=== PATIENT | male | born 1990 | race Caucasian/White ===

== ENCOUNTER 2019-03-18 09:56 | Emergency (ER) | payer MEDICAID ==
[~2019-03-18] VITALS: Ht 172.7 cm; Wt 72.6 kg
[2019-03-18 10:08] VITALS: Ht 172.7 cm; Wt 72.6 kg
[2019-03-18 12:11] VITALS: BP 135/82
== END 2019-03-18 12:11 | disposition home or self-care (01) ==
LOC: ED 09:56
DX: S01.01XA Laceration without foreign body of scalp, initial encounter (principal); S60.812A Abrasion of left wrist, initial encounter; S60.411A Abrasion of left index finger, initial encounter; Y04.0XXA Assault by unarmed brawl or fight, initial encounter; Y93.B2 Activity, push-ups, pull-ups, sit-ups; Y92.89 Other specified places as the place of occurrence of the external cause; Y99.8 Other external cause status
CPT/HCPCS: 90715; J2001

== ENCOUNTER 2019-03-26 11:27 | Emergency (ER) | payer MEDICAID ==
[~2019-03-26] VITALS: Ht 172.7 cm; Wt 72.6 kg
[2019-03-26 11:32] VITALS: BP 124/74; Ht 172.7 cm; Wt 72.6 kg
== END 2019-03-26 14:18 | disposition home or self-care (01) ==
LOC: ED 11:27
DX: S01.01XD Laceration without foreign body of scalp, subsequent encounter (principal); X58.XXXD Exposure to other specified factors, subsequent encounter